=== PATIENT | male | born 1980 | race Caucasian/White ===

== ENCOUNTER 2016-10-21 04:16 | Emergency (ER) | payer BC, OTHER ==
[~2016-10-21] VITALS: Ht 172.7 cm; Wt 80.7 kg
[~2016-10-21 04:16] MED LIST: CLON0.5T; OMEP20CA4 PO; SERT25TA
--- NOTE | 2016-10-21 04:25 | NUR ---
TO BED 8 A 35 YO MALE PT BIBSELF C/O MIDSTERNAL CP ON AND OFF X 2 HOURS NO CP AT THIS TIME. NAD NOTED. VSS. BREATHING EVEN AND UNLABORED. NONDIPHORETIC. ONGOING CARDIAC AND VS MONITORING. COMFORT MEASURES RENDERED. AWAITING FOR ER MD CHU.
--- NOTE | 2016-10-21 04:26 | NUR ---
TECH AT BEDSIDE FOR EKG.
--- NOTE | 2016-10-21 04:56 | NUR ---
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
[2016-10-21 05:30] VITALS: BP 117/82
--- NOTE | 2016-10-21 05:30 | NUR ---
Patient discharged to home in stable condition. Written and verbal after care instructions given. Patient verbalizes understanding of instruction. Patient is ambulatory with steady gait, no further complaints.
== END 2016-10-21 05:31 | disposition home or self-care (01) ==
LOC: ER 04:23
DX: R07.9 Chest pain, unspecified (principal); F32.9 Major depressive disorder, single episode, unspecified; K21.9 Gastro-esophageal reflux disease without esophagitis; F41.9 Anxiety disorder, unspecified
CPT/HCPCS: 71010; 93005; 99284; A4606; Z7610